=== PATIENT | female | born 1985 | race Caucasian/White ===

== ENCOUNTER 2019-04-07 13:05 | Day surgery (SDC) ==
[2019-04-07] MEDS ORDERED: LR 1,000 ML ONE (14:09)
[2019-04-07] MEDS ORDERED: KEFZOL 1 GM/D5W 2 GM/100 ML IVPB ONE (14:09)
[2019-04-07] MEDS ORDERED: REGLAN ONE (14:28)
[2019-04-07] MEDS ORDERED: TRANSDERM-SCOP ONE (14:28)
[2019-04-07] MEDS ORDERED: PEPCID ONE (14:28)
[2019-04-07] MEDS ORDERED: DEMEROL ONE (14:29)
[2019-04-07] MEDS ORDERED: XYLOCAINE-MPF 2% ONE ×2 (16:28→17:43)
[2019-04-07] MEDS ORDERED: DIPRIVAN 1% ONE (16:29)
[2019-04-07] MEDS ORDERED: FENTANYL ONE (16:29)
[2019-04-07] MEDS ORDERED: DECADRON ONE ×2 (17:53→18:30)
[2019-04-07] MEDS ORDERED: ZOFRAN ONE (17:53)
[2019-04-07] MEDS ORDERED: HYPERRAB IM ONE (18:00)
[2019-04-07] MEDS ORDERED: IMOVAX RABIES VACCINE IM ONE (18:00)
[2019-04-07] MEDS ORDERED: OFIRMEV 1000 MG/ISOTONIC SOLN 1,000 MG/100 ML BOTTLE ONE (18:21)
[2019-04-07] MEDS ORDERED: TORADOL ONE (18:30)
[2019-04-07] MEDS ORDERED: ZOFRAN IV PRN (19:09)
[2019-04-07] MEDS ORDERED: MILK OF MAGNESIA PO PRN (19:09)
[2019-04-07] MEDS ORDERED: NORCO-7.5 PO PRN (20:51)
[2019-04-07] MEDS ORDERED: COLACE PO SCH (21:00)
[2019-04-07] MEDS: MORPHINE IV PRN (22:05)
[2019-04-07] MEDS: TYLENOL PO SCH (22:05)
[2019-04-07] MEDS: ZOSYN 4.5 GM in NS 100 ML IV SCH (22:11)
--- NOTE | 2019-04-08 03:52 | OPERATIVE NOTE ---
PROCEDURE DATE: 04/07/2019 PREOPERATIVE DIAGNOSES: 1. Right open ulna fracture. 2. Right forearm laceration from a dog bite. POSTOPERATIVE DIAGNOSES: 1. Right Gustilo Willie type 1 open distal ulna fracture. 2. Right forearm laceration secondary to dog bite. PROCEDURE PERFORMED: 1. Debridement and irrigation of skin, muscle and bone of a right open ulna fracture. 2. Delayed primary closure of forearm laceration. SURGEON: Antonio Kaye MD. RETAIL MANAGER IN TRAINING: Awais Benson RN. ANESTHESIA: General endotracheal anesthesia. COMPLICATIONS: None. SPECIMENS: None. BLOOD LOSS: Less than 10 mL. IMPLANTS: None. INDICATIONS FOR PROCEDURE: Ms. Burden is a 33-year-old lady who sustained a dog bite to her right forearm on 04/04/2019. She is seen in the ER initially and had her wound stitched up and was placed on antibiotics. She presented to my office today with draining wound from a volar incision. Given these findings along with her distal ulna fracture the decision was made to proceed to the operating room for debridement and irrigation of the fracture. The risks, benefits and alternative therapies were discussed with the patient regarding surgery. The risks of surgery include, but are not limited to the risks of bleeding, infection, damage to nerves and vessels around the area, continued pain following surgery, and need for revision surgery. There is also a risk of a malunion and nonunion of the fracture. There is a risk of anesthesia including blood clot, stroke, heart attack, even . The patient understands these risks. All questions were answered. Informed consent was obtained. PROCEDURE IN DETAIL: Ms. Burden was identified by wristband and greeted in the preoperative holding area on 04/07/2019. Her right upper extremity which was the operative side was then marked with indelible ink per [id number] protocol. Following this the patient was transferred back to the operating room for surgery. Upon in the OR she was transferred to supine position on the Skytron table. All bony prominences were well padded. General endotracheal anesthesia was then induced. At this time the right upper extremity was prepped and draped in routine sterile fashion. A formal time-out was performed confirming the correct patient, procedure, operative site, operative side and administration of perioperative antibiotics. Everyone was in agreement. The patient was given Ancef after cultures were taken. The right upper extremity was gravity exsanguinated and tourniquet was elevated to 250 mmHg. Total tourniquet time was about 30 minutes. Once this was done sutures were cut out of the wounds. Metzenbaum scissors were then used to spread down through the subcutaneous tissue. A 15 blade knife was used to extend the ulnar dog bite wound distally over the ulnar styloid. Metzenbaum scissors were then used to spread through subcutaneous tissue to the ulnar border of the bone. Fracture site was identified at this time. At this time all wounds were mechanically debrided using a curette. There was a small amount of gross purulence in the volar wound, once the stitches were removed however, nothing has seemed to track deep. There is no purulence around the ulnar side of the bone. After mechanical debridement was complete, a 15 blade knife was used for sharp debridement of skin edges. We then copiously irrigated the wounds with 6 L of normal saline. Once this was done the arm was re-prepped with ChloraPrep, and new gloves and down sheets were placed. At this time the fluoroscopy was then brought in to look at our fracture reduction. Fracture was found to be in good alignment. The wounds were then closed with 2-0 PDS suture followed by 3-0 nylon for skin closure in mattress fashion. At this time we then administered the rabies IVIG immunoglobulin dose around the perimeter of the dog bite wounds as specified per the pamphlet. She has also had her 1st vaccination administered into her left deltoid. At this time wounds were then dressed with Xeroform, 4x4s, and sterile Webril. The tourniquet was then released. Again total tourniquet time was 30 minutes. The patient was then placed into a well- padded sugar-tong splint. Fluoroscopy was brought in to take final x-rays and showing good reduction of the fracture site. At this time the patient was then extubated, transferred from to her hospital bed and taken to recovery in stable condition. There were no acute complications during the procedure. All sponge and sharp counts were correct at the conclusion of the procedure.
[2019-04-08] MEDS: ZOSYN 4.5 GM in NS 100 ML IV SCH ×3 (04:17→15:14)
[2019-04-08] MEDS: TYLENOL PO SCH ×2 (04:18→13:21)
[2019-04-08] MEDS: MORPHINE IV PRN ×2 (05:10→09:19)
--- NOTE | 2019-04-08 11:30 | ORTHOPAEDICS PROGRESS NOTE ---
DATE: 04/08/2019 SUBJECTIVE: No acute events overnight. Patient is doing much better since surgery. She states she feels like pressure is relieved from her hand and wrist. She slept well overnight. She is tolerating a diet. She is urinating voluntarily. VITAL SIGNS: Afebrile. Vital signs stable. CULTURES: Gram stain showed no bacteria. Cultures are pending. OBJECTIVE: Extremities: Examination of right upper extremity shows sugar-tong splint to be clean, dry, and intact. Minimal swelling in the fingers. Motor is intact to AIN, PIN, ulnar nerve distribution. Sensation intact to light touch to median, radial, ulnar, axillary nerves. Brisk capillary refill x5. No pain with passive range of motion of the fingers. ASSESSMENT: A 33-year-old female with a right open distal ulna fracture secondary to dog bite. PLAN: 1. Patient is to continue Zosyn 4.5 grams every 6 hours times 2 more doses today. We will then send her home on Augmentin twice daily. 2. Okay to mobilize as tolerated. 3. Ice to right hand as needed. DISPOSITION: The patient will be discharged home this afternoon after her second dose of Zosyn for the day. I will see her back in clinic in 1 week for wound check.
[2019-04-08] MEDS: OXY IR PO PRN ×2 (13:21→16:48)
[2019-04-08 16:26] VITALS: BP 113/68
--- NOTE | 2019-04-09 18:05 | DISCHARGE SUMMARY ---
ADMISSION DATE: 04/07/2019 DISCHARGE DATE: 04/08/2019 SERVICE: Orthopaedic Surgery. ADMISSION DIAGNOSES: 1. Right open distal ulna fracture. 2. Right forearm laceration secondary to dog bite. DISCHARGE DIAGNOSES: 1. Right open distal ulna fracture. 2. Right forearm laceration secondary to dog bite. PROCEDURES: 1. Debridement and irrigation of skin, muscle, and bone of right open distal ulna fracture. 2. Debridement and closure of right forearm laceration. BRIEF HOSPITAL COURSE: Ms. Burden is 33-year-old lady who sustained a dog bite to her arm on 04/04/2019. She presented to clinic with some purulent drainage from the wound, was admitted, and taken back for debridement and irrigation of her open fracture with placement of a splint. The patient also received her rabies immunoglobulin around the wound while in the operating room, as well as her first dose of the rabies vaccine. The patient tolerated surgery well and was transferred to the floor postoperatively. She did well overnight. She was on Zosyn 4.5 g q.6 hours per Infectious Disease recommendations. On postoperative day 1, she was tolerating a diet. Her pain was well controlled on p.o. pain medication and she received 24 hours of IV antibiotics. She was thus discharged home. We sent her out on a 10-day supply of Augmentin for antibiotic prophylaxis. We also arranged for her next 3 outpatient rabies vaccinations to be done on day 3, 7, and 14. DISPOSITION: Discharged home. CONDITION: Stable. ACTIVITIES: Patient is nonweightbearing to right upper extremity. DISCHARGE INSTRUCTIONS: 1. Patient is to keep her splint clean, dry, intact, until her followup appointment. 2. Patient should take the full course of her antibiotics as instructed. 3. She will follow up with me at [facility] in 1 week for a wound check. 4. She should follow up in the ER for her next 3 doses of rabies vaccination. 5. She can return to the ER with any new-onset chest pain, shortness of breath, fever greater than 101.5, or drainage from surgical incision.
== END 2019-04-08 17:12 | disposition home or self-care (01) ==
LOC: OR 13:05 → 4N 19:50 → INTOOBSV 19:50 → OR 04-08 17:12
PROVIDERS: ATTEND Orthopaedic Surgery Sports Medicine